=== PATIENT | female | born 1960 | race Caucasian/White ===

== ENCOUNTER 2018-11-04 10:00 | Emergency (ER) | payer BC ==
--- OUTSIDE RECORDS SUMMARY | 2018-11-04 10:02 | XMS REPORT ---
:1960 [facility] Address [address] [place] [address] [address]. Jones [address] [place] [address] Care Team Providers Name Role Phone Unavailable Unavailable Unavailable Problems This patient has no known problems. Allergies, Adverse Reactions, Alerts This patient has no known allergies or adverse reactions. Medications This patient has no known medications.
--- OUTSIDE RECORDS SUMMARY | 2018-11-04 10:02 | XMS REPORT | Continuity of Care Document ---
:1960 Author Organization Interface Problems Problem Status Onset Classification Date Comments Source Date Reported Acute urinary Diagnosis 09/03/2016 [facility] tract 7 infection Medications Medication Details Route Status Patient Ordering Order Source Instructions Provider Date NITROFURANTOIN, Macrobid Active [facility] MACROCRYSTALS 25 100 mg MG / capsule Nitrofurantoin, Take 1 Monohydrate 75 MG capsule Oral Capsule every 12 [Macrobid] hours by oral route as directed for 7 days. Phenazopyridine Pyridium Active [facility] hydrochloride 200 200 mg MG Oral Tablet tablet [Pyridium] Take 1 tablet every 8 hours by oral route as directed for 2 days. Allergies, Adverse Reactions, Alerts Substance Category Reaction Severity Reaction Status Date Comments Source type Reported Percodan Allergy to [facility] substance 7 Immunizations Immunization Date Given Site Status Last Updated Comments Source Results Order Name Results Value Reference Date Interpretation Comments Source Range Urinalysis COLOR : Yellow 09/03 [facility] macro (dipstick) panel - Urine Urinalysis CLARITY : Cloudy 09/03 [facility] macro (dipstick) panel - Urine Urinalysis LEUKOCYTES : Small 09/03 [facility] macro (dipstick) panel - Urine Urinalysis NITRITES : Negative 09/03 [facility] macro (dipstick) panel - Urine Urinalysis UROBILINOGEN : Normal 09/03 [facility] macro (dipstick) panel - Urine Urinalysis PROTEIN : Trace 09/03 [facility] macro (dipstick) panel - Urine Urinalysis pH : 5.0 09/03 [facility] macro (dipstick) panel - Urine Urinalysis BLOOD : Non-hemol 09/03 [facility] macro iz (dipstick) Trace panel - Urine Urinalysis SPECIFIC 1.030 09/03 [facility] macro GRAVITY (dipstick) panel - Urine Urinalysis KETONES : Trace 09/03 [facility] macro (dipstick) panel - Urine Urinalysis BILIRUBIN : Negative 09/03 [facility] macro (dipstick) panel - Urine Urinalysis GLUCOSE Negative 09/03 [facility] macro (dipstick) panel - Urine Vital Signs Vital Sign Value Date Comments Source Diastolic (mm Hg) 90 09/03/2016 [facility] Height 67 09/03/2016 [facility] Systolic (mm Hg) 132 09/03/2016 [facility] Weight 200 09/03/2016 [facility] Encounters Location Location Encounter Encounter Reason Attending ADM DC Status Source Details Type Number For Provider Date Date Visit [place] - [place] [id number] Ankita 09/03 [facility] Jorge [id number] Jorge /2016 - CLASSER: [id number] [facility]Sophia Tapia [id number] [place] [address] , Ph. Procedures Procedure Code Date Perfomer Comments Source Appendectomy [facility]
--- OUTSIDE RECORDS SUMMARY | 2018-11-04 10:02 | XMS REPORT | Clinical Summary ---
:1960 Author Organization [facility] Address [address] [place] [address] Care Team Providers Name Role Phone Asked, No Pcp Primary Care Provider Unavailable Allergies Active Allergy Reactions Severity Noted Date Comments Oxycodone-Acetaminophen 05/20/2016 Medications No known medications Active Problems Problem Noted Date Sprain of left rotator cuff capsule 05/20/2016 Social History Tobacco Use Types Packs/Day Years Used Date Never Assessed Sex Assigned at Date Recorded Not on file Job Start Date Occupation Industry Not on file Not on file Not on file Travel History Travel Start Travel End No recent travel history available. Last Filed Vital Signs Not on file Plan of Treatment Health Maintenance Due Date Last Done Comments BREAST CANCER SCREENING 2012 COLON CANCER SCREENING 2012 SHINGLES VACCINES (#1) 2012 INFLUENZA VACCINE 12/30/2018 Results Not on fileafter 11/03/2017 (Home) [address] [place] [id number] Advance Directives Patient has advance care planning documents on file. For more information, please contact:[address] [address]
--- NOTE | 2018-11-04 11:18 | ER ---
Nurse's Notes [facility] Name: Deanna Armendariz Age: 58 yrs Sex: Female : 1960 Arrival Date: 11/04/2018 Time: 10:02 Bed 12 Private MD: Diagnosis: Otitis media, unspecified, right ear;Otitis externa in other diseases classified elsewhere, right ear Presentation: 11/04 10:14 Presenting complaint: Patient states: Right ear pain for 2 days. Started ABX 2 days aj ago. 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 Transition of care: patient was not received from another setting of care. Onset of symptoms was November 02, 2018. Risk Assessment: Do you want to hurt yourself or someone else? Patient reports no desire to harm self or others. Initial Sepsis Screen: Does the patient meet any 2 criteria? No. Patient's initial sepsis screen is negative. Does the patient have a suspected source of infection? No. Patient's initial sepsis screen is negative. Care prior to arrival: None. 10:14 Method Of Arrival: Ambulatory aj 10:14 Acuity: SAILAJA 4 aj Triage Assessment: 10:16 General: Appears in no apparent distress. comfortable, Behavior is calm, cooperative, aj appropriate for age. Pain: Complains of pain in right ear Pain currently is 4 out of 10 on a pain scale. EENT: Reports pain in right ear. Neuro: Level of Consciousness is awake, alert, obeys commands, Oriented to person, place, time, situation, Appropriate for age. Respiratory: Airway is patent Respiratory effort is even, unlabored, Respiratory pattern is regular, symmetrical. Derm: Skin is intact, is healthy with good turgor, Skin is pink, warm \T\ dry. normal. Historical: - Allergies: 10:16 Oxycodone HCl; aj 10:16 oxycodone terephthalate; aj 10:16 ACETAMINOPHEN; aj 10:16 Aspirin; aj - PSHx: 10:16 tissue removal both breast; Appendectomy; lump removal right arm; ; Hernia aj repair; foot surgery; - Immunization history:: Adult Immunizations up to date. - Social history:: Smoking status: Patient/guardian denies using tobacco. - Ebola Screening: : Patient negative for fever greater than or equal to 101.5 degrees Fahrenheit, and additional compatible Ebola Virus Disease symptoms Patient denies exposure to infectious person Patient denies travel to an Ebola-affected area in the 21 days before illness onset No symptoms or risks identified at this time. Screenin:20 Abuse screen: Denies threats or abuse. Denies injuries from another. Nutritional hb screening: No deficits noted. Tuberculosis screening: No symptoms or risk factors identified. Fall Risk None identified. Assessment: 11:05 General: Appears in no apparent distress. Behavior is calm, cooperative. Pain: Pain hb currently is 4 out of 10 on a pain scale. Neuro: Level of Consciousness is awake, alert, obeys commands, Oriented to person, place, time, situation. Cardiovascular: Capillary refill < 3 seconds Patient's skin is warm and dry. Respiratory: Airway is patent Respiratory effort is even, unlabored, Respiratory pattern is regular, symmetrical. GI: No signs and/or symptoms were reported involving the gastrointestinal system. : No signs and/or symptoms were reported regarding the genitourinary system. EENT: Reports pain in right ear. Derm: Skin is intact, is healthy with good turgor, Skin is pink, warm \T\ dry. Musculoskeletal: No signs and/or symptoms reported regarding the musculoskeletal system. Vital Signs: 10:16 BP 165 / 87; Pulse 86; Resp 19; Temp 98.1; Pulse Ox 100% on R/A; Weight 64.41 kg; aj Height 5 ft. 8 in. (172.72 cm); 10:16 Body Mass Index 21.59 (64.41 kg, 172.72 cm) aj ED Course: 10:02 Patient arrived in ED. ds1 10:15 Triage completed. aj 10:16 Arm band placed on right wrist. Patient placed in waiting room. aj 11:03 Familia Jain PA is PHCP. cp 11:03 Familia Prieto MD is Attending Physician. cp 11:05 Patient has correct armband on for positive identification. Call light in reach. hb 11:16 Jeanette Payton MD is Referral Physician. cp 11:40 Dayan Swan, MARIANA is Primary Nurse. hb 11:41 No provider procedures requiring assistance completed. Patient did not have IV access hb during this emergency room visit. Administered Medications: No medications were administered Outcome: 11:17 Discharge ordered by . cp 11:41 Discharged to home ambulatory. hb 11:41 Condition: stable 11:41 Discharge instructions given to patient, Instructed on discharge instructions, follow up and referral plans. medication usage, Demonstrated understanding of instructions, follow-up care, medications, Prescriptions given X 2. 11:42 Patient left the ED. hb Signatures: Candelaria Pena, RN RN Aliza Farmer ds1 Familia Jain PA PA cp Baxter, Heather RN RN hb
--- NOTE | 2018-11-04 11:18 | EDPHYS ---
Physician Documentation [facility] Name: Deanna Armendariz Age: 58 yrs Sex: Female : 1960 Arrival Date: 11/04/2018 Time: 10:02 Bed 12 Private MD: ED Physician Familia Prieto HPI: 11/04 11:12 This 58 yrs old Female presents to ER via Ambulatory with complaints of Ear cp Pain. 11:12 The patient presents with pain, that is acute, swelling, tenderness. The complaints cp affect the right ear. Onset: The symptoms/episode began/occurred 2 day(s) ago. Associated signs and symptoms: Pertinent negatives: cough, fever, sinus trouble, sore throat. Severity of symptoms: in the emergency department the symptoms are worse moderately. Patient reports she is currently taking Z-christy for ear infection for past 2 days. Historical: - Allergies: 10:16 Oxycodone HCl; aj 10:16 oxycodone terephthalate; aj 10:16 ACETAMINOPHEN; aj 10:16 Aspirin; aj - PSHx: 10:16 tissue removal both breast; Appendectomy; lump removal right arm; ; Hernia aj repair; foot surgery; - Immunization history:: Adult Immunizations up to date. - Social history:: Smoking status: Patient/guardian denies using tobacco. - Ebola Screening: : Patient negative for fever greater than or equal to 101.5 degrees Fahrenheit, and additional compatible Ebola Virus Disease symptoms Patient denies exposure to infectious person Patient denies travel to an Ebola-affected area in the 21 days before illness onset No symptoms or risks identified at this time. ROS: 11:14 Constitutional: Negative for body aches, chills, fever, poor PO intake. cp 11:14 Eyes: Negative for injury, pain, redness, and discharge. cp 11:14 ENT: Positive for ear pain, Negative for drainage from ear(s), sore throat, difficulty swallowing, difficulty handling secretions. 11:14 Neck: Negative for stiffness. 11:14 Respiratory: Negative for cough, shortness of breath, wheezing. 11:14 Abdomen/GI: Negative for abdominal pain, nausea, vomiting, and diarrhea, constipation. 11:14 : Negative for urinary symptoms. 11:14 Skin: Negative for rash. 11:14 Neuro: Negative for altered mental status, headache. 11:14 All other systems are negative. Exam: 11:15 Constitutional: The patient appears in no acute distress, alert, awake, non-toxic, well cp developed, well nourished. 11:15 Head/Face: Normocephalic, atraumatic. cp 11:15 Eyes: Periorbital structures: appear normal, Conjunctiva: normal, no exudate, no injection, Lids and lashes: appear normal, bilaterally. 11:15 ENT: External ear(s): are unremarkable, pain with movement, that is moderate, of the right ear canal, swelling, of the right ear canal, mild, Ear canal(s): erythema, that is moderate, of the right canal, purulent discharge, is not appreciated, swelling, that is moderate, of the right canal, TM's: erythema, that is moderate, on the right, Examination of the other ear shows no obvious abnormality, Nose: is normal, Mouth: Lips: moist, Oral mucosa: pink and intact, moist, Posterior pharynx: Airway: no evidence of obstruction, patent. 11:15 Neck: ROM/movement: is normal, is supple, without pain, no range of motions limitations, no meningismus, no nuchal rigidity, Lymph nodes: no appreciated lymphadenopathy. 11:15 Chest/axilla: Inspection: normal. 11:15 Cardiovascular: Rate: normal. 11:15 Respiratory: the patient does not display signs of respiratory distress, Respirations: normal. 11:15 Skin: no rash present. Vital Signs: 10:16 BP 165 / 87; Pulse 86; Resp 19; Temp 98.1; Pulse Ox 100% on R/A; Weight 64.41 kg; aj Height 5 ft. 8 in. (172.72 cm); 10:16 Body Mass Index 21.59 (64.41 kg, 172.72 cm) aj MDM: 11:04 Patient medically screened. konstantin 11:10 Differential diagnosis: otitis media, otitis externa, ruptured TM, foreign body, acute cp otalgia, cerumen impaction. 11:16 Data reviewed: vital signs, nurses notes, and as a result, I will discharge patient. cp 11:16 Counseling: I had a detailed discussion with the patient and/or guardian regarding: the cp historical points, exam findings, and any diagnostic results supporting the discharge/admit diagnosis, to return to the emergency department if symptoms worsen or persist or if there are any questions or concerns that arise at home. Administered Medications: No medications were administered Disposition: 12:20 Co-signature as Attending Physician, Familia Prieto MD I agree with the assessment and [facility] plan of care. Disposition: 11/04/18 11:17 Discharged to Home. Impression: Otitis media, unspecified, right ear, Otitis externa in other diseases classified elsewhere, right ear. - Condition is Stable. - Discharge Instructions: Otitis Media, Adult, Otitis Externa. - Prescriptions for Cipro 500 mg Oral Tablet - take 1 tablet by ORAL route every 12 hours for 10 days; 20 tablet. Ciprodex 0.3- 0.1 % Otic Drops, Suspension - instill 4 drop by OTIC route every 12 hours for 7 days , for ears ONLY; 1 Container. - Medication Reconciliation Form, Thank You Letter, Antibiotic Education, Prescription Opioid Use form. - Follow up: Jeanette Payton MD; When: 2 - 3 days; Reason: Worsening of condition. - Problem is new. - Symptoms are unchanged. Signatures: Candelaria Pena, RN RN Familia Lake MD MD cha Page, Corey, PA PA cp Dayan Swan RN RN Corrections: (The following items were deleted from the chart) 11:42 11:17 11/04/2018 11:17 Discharged to Home. Impression: Otitis media, unspecified, right hb ear; Otitis externa in other diseases classified elsewhere, right ear. Condition is Stable. Forms are Medication Reconciliation Form, Thank You Letter, Antibiotic Education, Prescription Opioid Use. Follow up: Jeanette Payton; When: 2 - 3 days; Reason: Worsening of condition. Problem is new. Symptoms are unchanged. cp 11/05 07:25 07:23 Constitutional: Negative for cp cp
== END 2018-11-04 11:42 | disposition home or self-care (01) ==
LOC: ER 10:00
DX: H66.91 Otitis media, unspecified, right ear (principal); H60.91 Unspecified otitis externa, right ear; Z88.6 Allergy status to analgesic agent; Z88.5 Allergy status to narcotic agent
CPT/HCPCS: 99282

== ENCOUNTER 2018-12-06 08:28 | Emergency (ER) | payer BC ==
[2018-12-06] MEDS ORDERED: TETANUS & DIPHTHERIA TOX,ADULT 0.5 ML VIAL ONE (09:14)
--- OUTSIDE RECORDS SUMMARY | 2018-12-06 09:17 | XMS REPORT | Clinical Summary ---
:1960 Author Organization [facility] Address [address] [place] [address] Care Team Providers Name Role Phone Asked, [...] Last Done Comments BREAST CANCER SCREENING 2012 COLONOSCOPY SCREENING 2012 SHINGLES VACCINES (#1) 2012 INFLUENZA VACCINE 12/30/2018 Results Not on fileafter 12/05/2017 (Home) RO[address] [place] [phone] Advance Directives Patient has advance care planning documents on file. For more information, please contact:[address] [address]
--- OUTSIDE RECORDS SUMMARY | 2018-12-06 09:18 | XMS REPORT ---
:1960 [facility] Address [address] [place] [address] Dr. Jones [address] [place] [address] Care Team Providers Name Role Phone Unavailable Unavailable Unavailable Problems This patient has no known problems. Allergies, Adverse Reactions, Alerts This patient has no known allergies or adverse reactions. Medications This patient has no known medications.
--- OUTSIDE RECORDS SUMMARY | 2018-12-06 09:18 | XMS REPORT | Continuity of Care Document ---
:1960 Author Organization [email or web address] Care Team Providers Name Role Phone [email or web address] Unavailable Unavailable Problems Problem Status Onset Classification Date Comments [...] Percodan Allergy to [facility] substance 7 Immunizations No Data Provided for This Section Results Order Name Results Value Reference Date [...] 09/03 [facility] macro (dipstick) panel - Urine Pathology Reports No Data Provided for This Section Diagnostic Reports No Data Provided for This Section Consultation Notes No Data Provided for This Section Discharge Summaries No Data Provided for This Section History and Physicals No Data Provided for This Section Vital Signs Vital Sign Value Date Comments Source Diastolic (mm Hg) 90 09/03/2016 [facility] Height 67 09/03/2016 [facility] Systolic (mm Hg) 132 09/03/2016 [facility] Weight 200 09/03/2016 [facility] Encounters Location Location Encounter Encounter Reason Attending ADM DC Status Source Details Type Number For Provider Date Date Visit [place] - [place] [id number] Ankita 09/03 [facility] Jorge [id number] Jorge /2016 - [employer]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 Procedures Procedure Code Date Perfomer Comments Source Appendectomy [facility] Assessment and Plan No Data Provided for This Section Plan of Care No Data Provided for This Section Social History Social History Date Source Smoking Status 09/03/2016 [facility] Never Smoker Family History No Data Provided for This Section Advance Directives No Data Provided for This Section Functional Status No Data Provided for This Section
--- NOTE | 2018-12-06 09:42 | RAD REPORT ---
EXAM DESCRIPTION: RAD - Hand Left 3 View - 12/06/2018 9:06 am CLINICAL HISTORY: Left hand trauma, laceration left fifth digit region COMPARISON: None. FINDINGS: No fracture, dislocation or periosteal reaction noted. No foreign body or other soft tissu e abnormality. IMPRESSION: Negative left hand examination.
--- NOTE | 2018-12-06 10:27 | EDPHYS ---
Physician Documentation [facility] Name: Deanna Armendariz Age: 58 yrs Sex: Female : 1960 Arrival Date: 12/06/2018 Time: 08:30 Bed 19 Private MD: ED Physician Connor Carroll HPI: 12/06 08:51 This 58 yrs old Female presents to ER via Ambulatory with complaints of ps1 Finger Injury. 08:51 patient has small laceration to end of left small finger. Injured by table saw. Small ps1 superficial laceration. Does not appear to need repair. Has fake nail on finger. Does not appear to have nail bed laceration. TDAP not UTD. Pain mild. Bleeding controlled. R hand dominant.. Historical: - Allergies: 08:42 Percocet; ss 08:42 Percodan; ss - PSHx: 08:42 tissue removal both breast; Appendectomy; lump removal right arm; foot surgery; Hernia ss repair; ; - Immunization history:: Last tetanus immunization: > 10 years ago unknown. - Social history:: Smoking status: Patient/guardian denies using tobacco. - Ebola Screening: : Patient denies exposure to infectious person Patient denies travel to an Ebola-affected area in the 21 days before illness onset. ROS: 08:51 Constitutional: Negative for fever, chills, and weight loss, Eyes: Negative for injury, ps1 pain, redness, and discharge, Cardiovascular: Negative for chest pain, palpitations, and edema, Respiratory: Negative for shortness of breath, cough, wheezing, and pleuritic chest pain, Abdomen/GI: Negative for abdominal pain, nausea, vomiting, diarrhea, and constipation, Neuro: Negative for headache, weakness, numbness, tingling, and seizure. 08:51 MS/extremity: Positive for laceration, pain, Negative for deformity, paresthesias. Exam: 08:51 Constitutional: This is a well developed, well nourished patient who is awake, alert, ps1 and in no acute distress. Head/Face: Normocephalic, atraumatic. Eyes: Pupils equal round and reactive to light, extra-ocular motions intact. Lids and lashes normal. Conjunctiva and sclera are non-icteric and not injected. Cardiovascular: Regular rate and rhythm. No gallops, murmurs, or rubs. Normal PMI, no JVD. No pulse deficits. Respiratory: Lungs have equal breath sounds bilaterally, clear to auscultation and percussion. No rales, rhonchi or wheezes noted. No increased work of breathing, no retractions or nasal flaring. 08:51 Musculoskeletal/extremity: Extremities: grossly normal except: noted in the dorsal aspect of distal phalanx of left little finger: abrasion, laceration, pain. Vital Signs: 08:42 BP 131 / 79; Pulse 85; Resp 16; Temp 98.3(TE); Pulse Ox 98% on R/A; Weight 65.77 kg; ss Height 5 ft. 8 in. (172.72 cm); Pain /10; 10:16 BP 124 / 79; Pulse 71; Resp 16; Pulse Ox 100% ; bp 08:42 Body Mass Index 22.05 (65.77 kg, 172.72 cm) ss MDM: 08:37 Patient medically screened. 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 Exp: bp 08/21/2020. Lot #: [id number]. } Route: IM; Site: left deltoid; Disposition: 12/06/18 10:26 Discharged to Home. Impression: Left finger laceration. . - Condition is Stable. - Discharge Instructions: Laceration Care, Adult. - Medication Reconciliation Form, Thank You Letter, Antibiotic Education, Prescription Opioid Use form. - Follow up: Emergency Department; When: As needed; Reason: Fever > 102 F, Worsening of condition. Follow up: Private Physician; When: As needed; Reason: Recheck today's complaints, Continuance of care, Re-evaluation by your physician. - Problem is new. - Symptoms have improved. Signatures: Dispatcher [employer] EDLucila Leon RN RN ss Familia Jain PA PA cp Peltier, Brian, RN RN Connor Valdovinos MD MD ps1 Corrections: (The following items were deleted from the chart) 10:39 10:26 12/06/2018 10:26 Discharged to Home. Impression: Left finger laceration. . bp Condition is Stable. Forms are Medication Reconciliation Form, Thank You Letter, Antibiotic Education, Prescription Opioid Use. Follow up: Emergency Department; When: As needed; Reason: Fever > 102 F, Worsening of condition. Follow up: Private Physician; When: As needed; Reason: Recheck today's complaints, Continuance of care, Re-evaluation by your physician. Problem is new. Symptoms have improved. ps1
--- NOTE | 2018-12-06 10:27 | ER ---
Nurse's Notes [facility] [place] Name: Deanna Armendariz Age: 58 yrs Sex: Female : 1960 Arrival Date: 12/06/2018 Time: 08:30 Bed 19 Private MD: Diagnosis: Left finger laceration. Presentation: 12/06 08:37 Presenting complaint: Patient states: Laceration to L fifth finger sustained last night ss by accident with table saw. Pt states, "I know I need a tetanus shot, but I'm not sure if I need stitches or not.". Transition of care: patient was not received from another setting of care. Onset of symptoms was December 05, 2018. Risk Assessment: Do you want to hurt yourself or someone else? Patient reports no desire to harm self or others. Initial Sepsis Screen: Does the patient meet any 2 criteria? No. Patient's initial sepsis screen is negative. Does the patient have a suspected source of infection? No. Patient's initial sepsis screen is negative. Care prior to arrival: None. 08:37 Method Of Arrival: Ambulatory ss 08:37 Acuity: SAILAJA 4 ss Triage Assessment: 08:40 General: Appears in no apparent distress. comfortable, Behavior is calm, cooperative, bp appropriate for age. Pain: Complains of pain in dorsal aspect of distal phalanx of left little finger. EENT: No deficits noted. Neuro: No deficits noted. Cardiovascular: No deficits noted. Respiratory: Airway is patent Respiratory effort is even, unlabored, Respiratory pattern is regular, symmetrical. GI: No signs and/or symptoms were reported involving the gastrointestinal system. : No signs and/or symptoms were reported regarding the genitourinary system. Derm: No deficits noted. Musculoskeletal: No deficits noted. Injury Description: Avulsion sustained to dorsal aspect of distal phalanx of left little finger. Historical: - Allergies: 08:42 Percocet; ss 08:42 Percodan; ss - PSHx: 08:42 tissue removal both breast; Appendectomy; lump removal right arm; foot surgery; Hernia ss repair; ; - Immunization history:: Last tetanus immunization: > 10 years ago unknown. - Social history:: Smoking status: Patient/guardian denies using tobacco. - Ebola Screening: : Patient denies exposure to infectious person Patient denies travel to an Ebola-affected area in the 21 days before illness onset. Screenin:40 Abuse screen: Denies threats or abuse. Denies injuries from another. Nutritional bp screening: No deficits noted. Tuberculosis screening: No symptoms or risk factors identified. Fall Risk None identified. Assessment: 08:40 General: SEE TRIAGE NOTE. Pain: Complains of pain in left hand and dorsal aspect of bp distal phalanx of left little finger. Musculoskeletal: No signs and/or symptoms reported regarding the musculoskeletal system. 10:00 Reassessment: WOUND CLEANED, NO ACTIVE BLEEDING. AWAITING PROVIDER RE-EVAL. bp Vital Signs: 08:42 BP 131 / 79; Pulse 85; Resp 16; Temp 98.3(TE); Pulse Ox 98% on R/A; Weight 65.77 kg; ss Height 5 ft. 8 in. (172.72 cm); Pain /10; 10:16 BP 124 / 79; Pulse 71; Resp 16; Pulse Ox 100% ; bp 08:42 Body Mass Index 22.05 (65.77 kg, 172.72 cm) ED Course: 08:30 Patient arrived in ED. rg4 08:31 Blas Sharpe, MARIANA is Primary Nurse. bp 08:35 Familia Jain PA is PHCP. cp 08:35 Connor Carroll MD is Attending Physician. cp 08:40 Triage completed. ss 08:40 Patient has correct armband on for positive identification. Bed in low position. Call bp light in reach. Side rails up X2. 08:42 Arm band placed on right wrist. ss 09:00 X-ray completed. Portable x-ray completed in exam room. Patient tolerated procedure ml well. 09:07 Hand Left 3 View XRAY In Process Unspecified. EDMS 10:37 No provider procedures requiring assistance completed. Patient did not have IV access bp during this emergency room visit. Dressings: Band aid x 1 left hand. Administered Medications: 09:05 Drug: Tetanus-Diphtheria Toxoid Adult 0.5 ml {Alligator Trapper: Quixby. Exp: bp 08/21/2020. Lot #: [id number]. } Route: IM; Site: left deltoid; Outcome: 10:26 Discharge ordered by . ps1 10:37 Discharged to home ambulatory. bp 10:37 Condition: stable 10:37 Discharge instructions given to patient, Instructed on discharge instructions, follow up and referral plans. wound care, Demonstrated understanding of instructions, follow-up care, wound care. 10:39 Patient left the ED. bp Signatures: Dispatcher [employer] Phylicia Tran Shelby, RN RN ss Familia Jain PA PA cp Garcia, Rubi rg4 Blas Sharpe RN RN bp Connor Carroll MD MD ps1
== END 2018-12-06 10:39 | disposition home or self-care (01) ==
LOC: ER 08:28
DX: S61.217A Laceration without foreign body of left little finger without damage to nail, initial encounter (principal); W29.8XXA Contact with other powered hand tools and household machinery, initial encounter; Z88.5 Allergy status to narcotic agent; Z23 Encounter for immunization
CPT/HCPCS: 90471; 90714; 99283

== ENCOUNTER 2021-02-18 16:31 | Emergency (ER) | payer BC ==
[2021-02-18 17:43] LABS: Urine Blood Trace-lysed (Negative); Urine Glucose Negative (Negative); Urine Protein Negative (Negative); Urine Specific Gravity <=1.005 (1.005-1.030)
--- NOTE | 2021-02-18 18:41 | RAD REPORT ---
EXAM DESCRIPTION: CTStone Protocol - 02/18/2021 6:21 pm CLINICAL HISTORY: . FLANK PAIN COMPARISON: Abdomen Pelvis W/Wo Contrast dated 10/27/2018; Esophagram Only dated 02/18/2021 TECHNIQUE: Biphasic CT imaging of the abdomen and pelvis was performed with 100 ml non-ionic IV cont rast. All CT scans are performed using dose optimization technique as appropriate and may include automated exposure control or mA/KV adjustment according to patient size. FINDINGS: Lower chest: Circumferentially thickened distal esophagus. Liver: Several low-density liver lesions which are unchanged and likely benign. Biliary: No biliary ductal dilatation. Stomach: No significant focal abnormality. Duodenum: No significant focal abnormality. Pancreas: No significant abnormality. Spleen: No significant abnormality. Adrenal: No suspicious lesions. Kidney/ureter: Mild bilateral hydroureteronephrosis. No renal calculi. Retroperitoneum: No retroperitoneal adenopathy. Vascular: No aneurysm. Bowel: No significant focal abnormality. Barium is present within the colon. Peritoneum: No ascites or free air. Bladder: Grossly unremarkable. Reproductive: No adnexal masses. Tubal ligation clips Bones: No acute fracture. Other: n/a IMPRESSION: 1. Mild bilateral hydroureteronephrosis without obstructing stone or mass. This could be secondary to urinary retention. 2. Other incidental findings as noted above.
[2021-02-18 20:46] LABS: Urine Bacteria <20 /HPF (<20); Urine RBC NONE SEEN /HPF (NONE SEEN)
--- NOTE | 2021-02-18 20:54 | ER ---
Nurse's Notes [facility] Name: Deanna Armendariz Age: 60 yrs Sex: Female : 1960 Arrival Date: 02/18/2021 Time: 16:33 Bed 13 Private MD: Diagnosis: Low back pain;Hydroureteronephrosis Presentation: 02/18 17:16 Chief complaint: Patient states: Right flank pain x 3 days and urgent care said there's jl7 blood in urine. Coronavirus screen: Vaccine status: Patient reports receiving the 2nd dose of the covid vaccine. Date July 2020 Pfizer At this time, the client does not indicate any symptoms associated with coronavirus-19. Ebola Screen: No symptoms or risks identified at this time. Initial Sepsis Screen: Does the patient meet any 2 criteria? No. Patient's initial sepsis screen is negative. Does the patient have a suspected source of infection? No. Patient's initial sepsis screen is negative. Risk Assessment: Do you want to hurt yourself or someone else? Patient reports no desire to harm self or others. Onset of symptoms was February 16, 2021. 17:16 Method Of Arrival: Ambulatory [facility] 17:16 Acuity: SAILAJA 3 jl7 Triage Assessment: 17:19 General: Appears in no apparent distress. uncomfortable, Behavior is calm, cooperative, jl7 appropriate for age. Pain: Complains of pain in right flank Pain currently is 5 out of 10 on a pain scale. : Reports blood in urine. Historical: - Allergies: 17:19 Percocet; jl7 17:19 Percodan; jl7 - Home Meds: 17:19 None [Active]; jl7 - PMHx: 17:19 None; jl7 - PSHx: 17:19 Appendectomy; section; jl7 - Immunization history:: Adult Immunizations up to date, Client reports receiving the 2nd dose of the Covid vaccine. - Social history:: Smoking status: Patient denies any tobacco usage or history of. Screenin:11 Abuse screen: Denies threats or abuse. Nutritional screening: No deficits noted. hb Tuberculosis screening: No symptoms or risk factors identified. Fall Risk None identified. Assessment: 18:17 Reassessment: Pt gone to CT. es2 Vital Signs: 17:16 BP 158 / 94; Pulse 88; Resp 19; Temp 97.8; Pulse Ox 100% ; Weight 74.84 kg; Height 5 jl7 ft. 7 in. (170.18 cm); Pain 5/10; 17:16 Body Mass Index 25.84 (74.84 kg, 170.18 cm) jl7 ED Course: 16:33 Patient arrived in ED. rg4 17:18 Anitha Guerrero FNP-C is [facility]. kb 17:18 Luis A Stevenson MD is Attending Physician. kb 17:19 Triage completed. jl7 17:19 Arm band placed on right wrist. jl7 18:11 Bed in low position. Call light in reach. Pulse ox on. NIBP on. hb 18:16 Lynn Ham, RN is Primary Nurse. es2 18:21 CT Stone Protocol In Process Unspecified. EDMS 21:16 No provider procedures requiring assistance completed. Patient did not have IV access bs2 during this emergency room visit. Administered Medications: 21:15 Drug: Ketorolac 30 mg Route: IM; Site: right deltoid; bs2 21:16 Follow up: Response: No adverse reaction bs2 Outcome: 20:53 Discharge ordered by MD. kb 21:17 Discharged to home ambulatory. bs2 21:17 Condition: improved 21:17 Discharge instructions given to patient, Instructed on discharge instructions, follow up and referral plans. Demonstrated understanding of instructions, follow-up care, Prescriptions given X 1. 21:18 Patient left the ED. bs2 Signatures: Dispatcher [employer] EDME Anitha Guerrero FNP-C FNP-Ckb Baxter, Heather, RN RN hb Garcia, Rubi rg4 Paul Vicente RN RN jl7 Joselin Ham RN RN bs2 Lynn Ham, MARIANA RN es2 Corrections: (The following items were deleted from the chart) 17:20 17:19 PSHx: None; 7 jl
--- NOTE | 2021-02-18 20:54 | EDPHYS ---
Physician Documentation [facility] Name: Deanna Armendariz Age: 60 yrs Sex: Female : 1960 Arrival Date: 02/18/2021 Time: 16:33 Bed 13 Private MD: ED Physician Luis A Stevenson HPI: 02/19 00:31 This 60 yrs old Female presents to ER via Ambulatory with complaints of kb Urinary Problem, Low Back Pain. 00:31 The patient presents with pain that is acute, with no known mechanism of injury. The kb symptoms are located in the low back. The pain does not radiate. The problem was sustained without known cause. Onset: The symptoms/episode began/occurred 2 week(s) ago. Modifying factors: The patient symptoms are alleviated by nothing, the patient symptoms are aggravated by any movement. Associated signs and symptoms: Pertinent positives: low back pain and urgency. Severity of symptoms: At their worst the symptoms were moderate, in the emergency department the symptoms are unchanged. The patient has not experienced similar symptoms in the past. The patient has not recently seen a physician. Pt reports low back pain for 2 weeks. States the pain has moved up to flank on right side.. Historical: - Allergies: 02/18 17:19 Percocet; jl7 17:19 Percodan; jl7 - Home Meds: 17:19 None [Active]; jl7 - PMHx: 17:19 None; jl7 - PSHx: 17:19 Appendectomy; section; jl7 - Immunization history:: Adult Immunizations up to date, Client reports receiving the 2nd dose of the Covid vaccine. - Social history:: Smoking status: Patient denies any tobacco usage or history of. ROS: 02/19 00:29 Constitutional: Negative for fever, chills, and weight loss. kb : Positive for flank pain, urgency. 00:29 All other systems are negative. kb Exam: 00:30 Constitutional: This is a well developed, well nourished patient who is awake, alert, kb and in no acute distress. Head/Face: Normocephalic, atraumatic. ENT: Moist Mucous membranes Cardiovascular: Regular rate and rhythm with a normal S1 and S2. No gallops, murmurs, or rubs. No pulse deficits. Respiratory: Respirations even and unlabored. No increased work of breathing, no retractions or nasal flaring. Abdomen/GI: Soft, non-tender. No distention Back: No spinal tenderness. No costovertebral tenderness. Full range of motion. Skin: Warm, dry with normal turgor. Normal color. MS/ Extremity: Pulses equal, no cyanosis. Neurovascular intact. Full, normal range of motion. Neuro: Awake and alert, GCS 15, oriented to person, place, time, and situation. Moves all extremities. Normal gait. Psych: Awake, alert, with orientation to person, place and time. Behavior, mood, and affect are within normal limits. Vital Signs: 02/18 17:16 BP 158 / 94; Pulse 88; Resp 19; Temp 97.8; Pulse Ox 100% ; Weight 74.84 kg; Height 5 jl7 ft. 7 in. (170.18 cm); Pain 5/10; 17:16 Body Mass Index 25.84 (74.84 kg, 170.18 cm) jl7 MDM: 17:18 Patient medically screened. kb 02/19 00:28 Differential diagnosis: UTI, kidney stone. Data reviewed: vital signs, nurses notes. kb Data interpreted: Pulse oximetry: on room air is 100 %. Interpretation: normal. Counseling: I had a detailed discussion with the patient and/or guardian regarding: the historical points, exam findings, and any diagnostic results supporting the discharge/admit diagnosis, lab results, radiology results, the need for outpatient follow up, a family practitioner, to return to the emergency department if symptoms worsen or persist or if there are any questions or concerns that arise at home. 02/18 17:19 Order name: Urine Microscopic Only; Complete Time: 20:53 kb 02/18 17:43 Order name: Urine Dipstick-Ancillary; Complete Time: 17:43 EDMS 02/18 17:19 Order name: CT Stone Protocol; Complete Time: 18:42 kb 02/18 17: Order name: Urine Dipstick-Ancillary (obtain specimen); Complete Time: 18:00 kb Administered Medications: 02/18 21:15 Drug: Ketorolac 30 mg Route: IM; Site: right deltoid; bs2 21:16 Follow up: Response: No adverse reaction bs2 Disposition: 02/19 07:17 Co-signature as Attending Physician, Luis A Stevenson MD I agree with the assessment and rn plan of care. Attestation: The patient's history, exam findings, diagnostics, and a summary of any interventions or procedures was reviewed in detail with Anitha FONTENOT. Disposition Summary: 02/18/21 20:53 Discharge Ordered Location: Home kb Condition: Stable kb Diagnosis - Low back pain kb - Hydroureteronephrosis kb Followup: kb - With: Emergency Department - When: As needed - Reason: Worsening of condition Followup: kb - With: Private Physician - When: 2 - 3 days - Reason: Recheck today's complaints, Continuance of care, Re-evaluation by your physician Discharge Instructions: - Discharge Summary Sheet kb - Musculoskeletal Pain kb Forms: - Medication Reconciliation Form kb - Thank You Letter kb - Antibiotic Education kb - Prescription Opioid Use kb Prescriptions: - Cyclobenzaprine 10 mg Oral Tablet - take 1 tablet by ORAL route every 8 hours As needed; 21 tablet; Refills: 0, kb Product Selection Permitted - Diclofenac Sodium 75 mg Oral tablet,delayed release (DR/EC) - take 1 tablet by ORAL route 2 times per day As needed; 30 tablet; Refills: 0, kb Product Selection Permitted Signatures: Dispatcher [employer] EDWI Anitha Guerrero FNP-C FNP-Ckb Nieto, Roman, MD MD rn Leal, Jahala, RN RN Joselin Beltre RN RN bs2 Corrections: (The following items were deleted from the chart) 02/18 17:20 17:19 PSHx: None; jl7 jl7 02/19 00:30 00:29 : Positive for flank pain, kb kb
[2021-02-18] MEDS ORDERED: KETOROLAC 30 MG/ML INJ ONE (21:36)
[2021-02-18 22:33] VITALS: BP 158/94; TEMP 97.8; O2SAT 100
== END 2021-02-18 21:18 | disposition home or self-care (01) ==
LOC: ER 16:31
DX: N13.30 Unspecified hydronephrosis (principal); Z88.5 Allergy status to narcotic agent
CPT/HCPCS: 74176; 76377; 81003; 81015; 96372; 99284

== ENCOUNTER → 2023-06-17 | Emergency (ER) | payer BC ==
[~2023-06-17] MED LIST: FAMOTIDINE 20 MG/2 ML VIAL IV ONE; FENTANYL CITR 100 MCG/2 ML ONE; MAGNES/ALUMIN/SIMET 30ML UCUP ONE; NA CHLORIDE 0.9% 1,000 ML ONE; ONDANSETRON 4 MG/2 ML VIAL ONE
[2023-06-17 19:38] LABS: Absolute Lymphocytes (CBC) 2.4 K/uL (0.7-4.9); Hematocrit 43.4 % (36.0-45.0); Lymphocytes % 33.2 % (15.3-44.8); MCV 92.7 fL (80-100); MPV 7.2 fL (7.6-11.3); Platelets 254 thou/uL (152-406); RBC Red Blood Cell Count 4.68 M/uL (3.86-4.86)
[2023-06-17 20:03] LABS: Albumin 3.8 g/dL (3.4-5.0); Bilirubin Total 0.2 mg/dL (0.2-1.0); Potassium 4.2 mEq/L (3.5-5.1); Protein, Total 7.6 g/dL (6.4-8.2)
[2023-06-17 20:18] LABS: Specific Gravity 1.006 (1.005-1.030); Urine Bacteria <20 /HPF (<20); Urine Bilirubin NEGATIVE (Negative); Urine Blood Negative (Negative); Urine Clarity Turbid (Clear); Urine Color Colorless (Yellow); Urine Crystals Unidentified Few /HPF (None Seen); Urine Glucose NEGATIVE (Negative); Urine Protein NEGATIVE (Negative); Urine RBC <5 /HPF (None Seen); Urine Urobilinogen Normal (Normal); Urine WBC Clump Rare /HPF (None Seen)
--- NOTE | 2023-06-17 20:30 | RAD REPORT ---
EXAM DESCRIPTION: CTAbdomen Pelvis W Contrast - 06/17/2023 8:23 pm CLINICAL HISTORY: Abdominal pain. ABD PAIN COMPARISON: No comparisons TECHNIQUE: Biphasic CT imaging of the abdomen and pelvis was performed with 100 ml non-ionic IV cont rast. All CT scans are performed using dose optimization technique as appropriate and may include automated exposure control or mA/KV adjustment according to patient size. FINDINGS: The lung bases are clear. Small hiatal hernia. The liver demonstrates multiple small low-density lesions, probably cysts. The spleen, pancreas, adre nal glands and kidneys are within normal limits. No bowel obstruction, free air, free fluid or abscess. Moderate stool throughout the colon. Appendect leyt. No evidence of significant lymphadenopathy. No suspicious bony findings. IMPRESSION: No acute intra-abdominal or pelvic finding.
--- NOTE | 2023-06-17 21:14 | ER ---
Nurse's Notes [facility] Name: Deanna Armendariz Age: 63 yrs Sex: Female : 1960 Arrival Date: 06/17/2023 Time: 18:23 Bed 14 Private MD: Diagnosis: Abdominal pain, Generalized Presentation: 06/17 18:54 Chief complaint: Patient states: abd pain since yesterday, today she had diarrhea that iw was black in color. Coronavirus screen: At this time, the client does not indicate any symptoms associated with coronavirus-19. Ebola Screen: Patient negative for fever greater than or equal to 101.5 degrees Fahrenheit, and additional compatible Ebola Virus Disease symptoms Patient denies exposure to infectious person. Patient denies travel to an Ebola-affected area in the 21 days before illness onset. No symptoms or risks identified at this time. Initial Sepsis Screen: Does the patient meet any 2 criteria? No. Patient's initial sepsis screen is negative. Does the patient have a suspected source of infection? No. Patient's initial sepsis screen is negative. Risk Assessment: Do you want to hurt yourself or someone else? Patient reports no desire to harm self or others. Onset of symptoms was June 16, 2023. 18:54 Method Of Arrival: Ambulatory iw 18:54 Acuity: SAILAJA 3 iw Historical: - Allergies: 18:55 Percocet; iw 18:55 Percodan; iw - PSHx: 18:55 Appendectomy; section; iw - Immunization history:: Adult Immunizations unknown. - Family history:: not pertinent. - Social history:: Smoking status: unknown. Screenin:22 [facility] ED Fall Risk Assessment (Adult) History of falling in the last 3 months, ha1 including since admission Yes- single mechanical fall (1 pt) Confusion or Disorientation No (0 pts) Intoxicated or Sedated No (0 pts) Impaired Gait No (0 pts) Mobility Assist Device Used No (0 pt) Altered Elimination No (0 pt) Score/Fall Risk Level 0 - 2 = Low Risk Oriented to surroundings, Maintained a safe environment, Hourly rounding (assess needs \T\ fall precautionary measures) done. Abuse screen: Denies threats or abuse. Denies injuries from another. Nutritional screening: No deficits noted. Tuberculosis screening: No symptoms or risk factors identified. Assessment: 19:40 General: Appears uncomfortable, Behavior is calm, cooperative. Pain: Complains of pain ha1 in abdomen Pain does not radiate. Pain currently is 7 out of 10 on a pain scale. Quality of pain is described as crampy, throbbing. Neuro: Level of Consciousness is awake, alert, obeys commands, Oriented to person, place, time, situation. Cardiovascular: Capillary refill < 3 seconds Patient's skin is warm and dry. Respiratory: Airway is patent Respiratory effort is even, unlabored, Respiratory pattern is regular, symmetrical. GI: Abdomen is round non-distended, Bowel sounds present X 4 quads. Abd is soft and non tender Reports lower abdominal pain, upper abdominal pain, diarrhea, bloody stool, nausea. Derm: Skin is pink, warm \T\ dry. Musculoskeletal: Circulation, motion, and sensation intact. Range of motion: intact in all extremities. 20:40 Reassessment: Patient and/or family updated on plan of care and expected duration. Pain ha1 level reassessed. Patient is alert, oriented x 3, equal unlabored respirations, skin warm/dry/pink. pain 0/10 Patient states feeling better. Patient states symptoms have improved. 21:38 Reassessment: Patient and/or family updated on plan of care and expected duration. Pain ha1 level reassessed. Patient is alert, oriented x 3, equal unlabored respirations, skin warm/dry/pink. Patient denies pain at this time. Patient states feeling better. Patient states symptoms have improved. Vital Signs: 18:54 BP 155 / 99; Pulse 92; Resp 16; Temp 97.8; Pulse Ox 97% on R/A; iw 20:00 BP 134 / 85; Pulse 85; Resp 17 S; Pulse Ox 98% on R/A; ha1 20:40 BP 135 / 82; Pulse 75; Resp 17 S; Pulse Ox 98% on R/A; ha1 21:38 BP 135 / 78; Pulse 75; Resp 17 S; Pulse Ox 98% on R/A; ha1 ED Course: 18:24 Patient arrived in ED. rg4 18:26 Chaka Mcconnell MD is Attending Physician. rt 18:55 Triage completed. iw 18:55 Arm band placed on. iw 19:33 CBC with Diff Sent. bc6 19:33 CMP Sent. bc6 19:33 Lipase Sent. bc6 19:33 Inserted saline lock: 20 gauge in right wrist, using aseptic technique. Blood collected.bc6 19:35 Served as a vp patient during rectal exam. cm10 19:40 Patient has correct armband on for positive identification. Placed in gown. Bed in low ha1 position. Call light in reach. Side rails up X 1. Adult w/ patient. 19:44 Rubi Starr, MARIANA is Primary Nurse. ha1 20:05 Attending Physician role handed off by Chaka Mcconnell MD ec2 20:05 Blanco Bonilla MD is Attending Physician. ec2 20:24 CT Abd/Pelvis - IV Contrast Only In Process Unspecified. EDMS 21:12 Urine Culture Sent. ha1 21:39 Provided Education on: need to follow up with PCP. ha1 21:39 IV discontinued, intact, bleeding controlled, No redness/swelling at site. Pressure ha1 dressing applied. Administered Medications: 20:03 Drug: NS 0.9% IV 1000 ml IV at 1 bolus Per protocol; 1000 mL bolus Route: IV; Rate: 1 ha1 bolus; Site: right wrist; 21:37 Follow up: Response: No adverse reaction; IV Status: Completed infusion; IV Intake: ha1 1000ml 20:03 Drug: Ondansetron IVP 4 mg IVP once; over 2 minutes Route: IVP; Site: right wrist; ha1 20:30 Follow up: Response: No adverse reaction; Marked relief of symptoms; Nausea is decreasedha1 20:05 Drug: Famotidine IVP 20 mg IVP once; dilute with 10 mL 0.9% NaCl; give over 2 minutes ha1 Route: IVP; Site: right wrist; 20:30 Follow up: Response: No adverse reaction; Marked relief of symptoms ha1 20:07 Drug: fentaNYL (PF) IVP 50 mcg IVP once Route: IVP; Site: right wrist; ha1 20:30 Follow up: Response: No adverse reaction; Pain is decreased; RASS: Alert and Calm (0) ha1 20:18 Drug: Alum-Mag Hydroxide-Simeth PO Suspension (200 mg-200 mg-20 mg/5 mL) 30 ml PO once ha1 Route: PO; 20:30 Follow up: Response: No adverse reaction; Marked relief of symptoms ha1 Medication: 20:23 VIS not applicable for this client. ha1 Intake: 21:37 IV: 1000ml; Total: 1000ml. ha1 Outcome: 21:14 Discharge ordered by . ec2 21:39 Discharged to home ambulatory, with family, ha1 21:39 Condition: stable 21:39 Discharge instructions given to patient, family, Instructed on discharge instructions, follow up and referral plans. Demonstrated understanding of instructions, follow-up care, 21:40 Patient left the ED. ha1 Signatures: Dispatcher [employer] Angelic Peck, Annmarie Segovia RN rg4 Rubi Starr RN RN ha1 Chaka Mcconnell MD MD rt Katalina Silva bc6 Liliya Miller RN RN cm10 Blanco Bonilla MD MD ec2
--- NOTE | 2023-06-17 21:14 | EDPHYS ---
Physician Documentation [facility] Name: Deanna Armendariz Age: 63 yrs Sex: Female : 1960 Arrival Date: 06/17/2023 Time: 18:23 Bed 14 Private MD: ED Physician Blanco Bonilla HPI: 06/17 20:10 This 63 yrs old Female presents to ER via Ambulatory with complaints of Abdominal Pain, rt Black/Tarry Stools. 20:10 Patient presents to the ED with abdominal pain starting yesterday. It is in the rt epigastrium, is generalized in nature. She has no nausea or vomiting. Patient did take Pepto yesterday. She states that the day, the abdominal pain has persisted, and that she had black stools. States that it was formed, not tarry. Denies other acute complaints at this time. Symptoms are moderate in severity, no other aggravating elevating factors.. Historical: - Allergies: 18:55 Percocet; iw 18:55 Percodan; iw - PSHx: 18:55 Appendectomy; section; iw - Immunization history:: Adult Immunizations unknown. - Family history:: not pertinent. - Social history:: Smoking status: unknown. ROS: 20:10 Constitutional: Negative for fever, chills, and weight loss, Cardiovascular: Negative rt for chest pain, palpitations, and edema, Respiratory: Negative for shortness of breath, cough, wheezing, and pleuritic chest pain, MS/Extremity: Negative for injury and deformity, Skin: Negative for injury, rash, and discoloration, Neuro: Negative for headache, weakness, numbness, tingling, and seizure, Psych: Negative for depression, anxiety, suicide ideation, homicidal ideation, and hallucinations, 20:10 Abdomen/GI: Positive for abdominal pain, Negative for nausea and vomiting, Exam: 20:10 Constitutional: This is a well developed, well nourished patient who is awake, alert, rt and in no acute distress. Head/Face: Normocephalic, atraumatic. Chest/axilla: Normal chest wall appearance and motion. Nontender with no deformity. No lesions are appreciated. Cardiovascular: Regular rate and rhythm with a normal S1 and S2. No gallops, murmurs, or rubs. Normal PMI, no JVD. No pulse deficits. Respiratory: Lungs have equal breath sounds bilaterally, clear to auscultation and percussion. No rales, rhonchi or wheezes noted. No increased work of breathing, no retractions or nasal flaring. Skin: Warm, dry with normal turgor. Normal color with no rashes, no lesions, and no evidence of cellulitis. MS/ Extremity: Pulses equal, no cyanosis. Neurovascular intact. Full, normal range of motion. Neuro: Awake and alert, GCS 15, oriented to person, place, time, and situation. Cranial nerves II-XII grossly intact. Motor strength 5/5 in all extremities. Sensory grossly intact. Cerebellar exam normal. Normal gait. Psych: Awake, alert, with orientation to person, place and time. Behavior, mood, and affect are within normal limits. 20:10 Abdomen/GI: Tenderness diffusely, no rebound, guarding, distention. Rectal exam shows formed stool, dark brown. No melena noted, Vital Signs: 18:54 BP 155 / 99; Pulse 92; Resp 16; Temp 97.8; Pulse Ox 97% on R/A; iw 20:00 BP 134 / 85; Pulse 85; Resp 17 S; Pulse Ox 98% on R/A; ha1 20:40 BP 135 / 82; Pulse 75; Resp 17 S; Pulse Ox 98% on R/A; ha1 21:38 BP 135 / 78; Pulse 75; Resp 17 S; Pulse Ox 98% on R/A; ha1 MDM: 18:58 Patient medically screened. rt 20:20 Data reviewed: vital signs. ED course: Patient signed out to me and previous physician, amanda in brief patient arrives today for abdominal pain as well as dark stools. Patient recently started on Pepto-Bismol which per signout suspect is the source of the patient's tarry stools, patient is not anemic. Plan is to follow-up CT scan of the abdomen pelvis and reassess the patient.. 21:11 ED course: CT abdomen pelvis shows no acute intra-abdominal pathology. . ec2 06/17 19:00 Order name: CBC with Diff; Complete Time: 20:05 rt 06/17 19:00 Order name: CMP; Complete Time: 20:05 rt 06/17 19:00 Order name: Lipase; Complete Time: 20:05 rt 06/17 19:00 Order name: Urinalysis w/ reflexes; Complete Time: 21:10 rt 06/17 20:23 Order name: Urine Culture EDAL 06/17 19:00 Order name: CT Abd/Pelvis - IV Contrast Only; Complete Time: 21:10 rt 06/17 19:00 Order name: IV Saline Lock; Complete Time: 19:33 rt 06/17 19:00 Order name: Labs collected and sent; Complete Time: 19:33 rt Administered Medications: 20:03 Drug: NS 0.9% IV 1000 ml IV at 1 bolus Per protocol; 1000 mL bolus Route: IV; Rate: 1 ha1 bolus; Site: right wrist; 21:37 Follow up: Response: No adverse reaction; IV Status: Completed infusion; IV Intake: ha1 1000ml 20:03 Drug: Ondansetron IVP 4 mg IVP once; over 2 minutes Route: IVP; Site: right wrist; ha1 20:30 Follow up: Response: No adverse reaction; Marked relief of symptoms; Nausea is decreasedha1 20:05 Drug: Famotidine IVP 20 mg IVP once; dilute with 10 mL 0.9% NaCl; give over 2 minutes ha1 Route: IVP; Site: right wrist; 20:30 Follow up: Response: No adverse reaction; Marked relief of symptoms ha1 20:07 Drug: fentaNYL (PF) IVP 50 mcg IVP once Route: IVP; Site: right wrist; ha1 20:30 Follow up: Response: No adverse reaction; Pain is decreased; RASS: Alert and Calm (0) ha1 20:18 Drug: Alum-Mag Hydroxide-Simeth PO Suspension (200 mg-200 mg-20 mg/5 mL) 30 ml PO once ha1 Route: PO; 20:30 Follow up: Response: No adverse reaction; Marked relief of symptoms ha1 Disposition Summary: 06/17/23 21:14 Discharge Ordered Notes: Location: Home ec2 Condition: Stable ec2 Diagnosis - Abdominal pain, Generalized ec2 Followup: ec2 - With: Private Physician - When: - Reason: Recheck today's complaints Discharge Instructions: - Discharge Summary Sheet ec2 - Abdominal Pain, Adult ec2 Forms: - Medication Reconciliation Form ec2 - Thank You Letter ec2 - Antibiotic Education ec2 - Prescription Opioid Use ec2 - Patient Portal Instructions ec2 - Leadership Thank You Letter ec2 Signatures: Dispatcher [employer] Angelic Peck RN RN iw Rubi Starr RN RN ha1 Chaka Mcconnell MD MD rt Blanco Bonilla MD MD ec2
[2023-06-18 04:03] VITALS: BP 135/78; TEMP 97.8; O2SAT 98
== END ==
LOC: ER 18:23
DX: R10.84 Generalized abdominal pain (principal); Z88.5 Allergy status to narcotic agent
CPT/HCPCS: 87088; 85025; 81001; 87086; 36415; 83690; 80053; 74177; Q9967; J3010; J2405; J7030

== ENCOUNTER 2025-01-05 09:14 | Emergency (ER) | payer BC ==
[2025-01-05] MEDS ORDERED: MORPHINE 4 MG/ML SYR ONE (09:44)
[2025-01-05] MEDS ORDERED: NA CHLORIDE 0.9% 1,000 ML ONE ×2 (09:44→11:34)
[2025-01-05] MEDS ORDERED: ONDANSETRON 4 MG/2 ML VIAL ONE (09:44)
[2025-01-05 10:03] LABS: Absolute Lymphocytes (CBC) 1.4 K/uL (0.7-4.9); Hematocrit 49.3 % (36.0-45.0); Hemoglobin 16.8 g/dL (12.0-15.0); MCH 31.1 pg (27.0-35.0); MCHC 34.0 g/dL (32.0-36.0); MCV 91.5 fL (80-100); MPV 7.6 fL (7.6-11.3); Nucleated RBC Absolute Count 0.0 (0-0); Nucleated Red Blood Cells % 0.0 % (0-0); RBC Red Blood Cell Count 5.39 M/uL (3.86-4.86); White Blood Count 9.70 thou/uL (4.3-10.9)
[2025-01-05 10:19] LABS: ALT/SGPT 17 U/L (13-56); Albumin 4.1 g/dL (3.4-5.0); Albumin/Globulin Ratio 1.1 (1.1-1.8); Alkaline Phosphatase 90 U/L (45-117); Anion Gap 9.8 mEq/L (5.0-15.0); BUN Blood Urea Nitrogen 24 mg/dL (7-18); Globulin 3.9 g/dL (2.3-3.5); Glucose Level 110 mg/dL (74-106); Lipase 19 U/L (13-75); Potassium 3.8 mEq/L (3.5-5.1)
[2025-01-05 10:26] LABS: AST/SGOT < 10 U/L (15-37)
--- NOTE | 2025-01-05 11:11 | RAD REPORT ---
EXAMINATION: CT ABDOMEN AND PELVIS WITH CONTRAST CLINICAL INDICATION: ABD PAIN TECHNIQUE: CT abdomen and pelvis was performed, after the administration of IV contrast, as per [facility] protocol. Axial, sagittal and coronal reconstructions were obtained. One or more of the following dose reduction techniques were used: Automated exposure control, adjustment of the mA and k V according to patient size, and iterative reconstruction. Unless otherwise specified, incidental findings do not require dedicated imaging follow-up. COMPARISON: No prior exam. FINDINGS: LOWER CHEST: The visualized lung bases are clear. LIVER: Several low-density liver lesions likely benign cyst. Largest measuring 2 cm. No aggressive li nikky lesion. Grossly unremarkable gallbladder. SPLEEN: Normal size. No focal lesion. PANCREAS: No mass, ductal dilation, or zuly-pancreatic fluid. ADRENALS: Normal; no mass. KIDNEYS: Normal size and contour. No hydronephrosis. GASTROINTESTINAL TRACT: No evidence of free air, significant intra-abdominal free fluid, bowel obstru ction or abscess. Mildly thickened appearance to the stomach mucosa seen. APPENDIX: Appendix surgically absent. LYMPH NODES: No lymphadenopathy. MUSCULOSKELETAL: Mild/moderate lower lumbar spondylosis. ADDITIONAL FINDINGS: None. IMPRESSION: Question mild gastritis. Otherwise, no acute process visualized.
--- NOTE | 2025-01-05 12:49 | ER ---
Nurse's Notes [facility] Name: Deanna Armendariz Age: 64 yrs Sex: Female : 1960 Arrival Date: 01/05/2025 Time: 09:14 Bed 6 Private MD: Diagnosis: Diarrhea, unspecified;Vomiting;Dehydration Presentation: 01/05 09:19 Chief complaint: Patient states: "I started with diarrhea on Thursday and it was better aa5 by Thursday but last night I started with vomiting and diarrhea again". Pt also c/o abd pain. 09:19 Coronavirus screen: diarrhea, nausea, vomiting. Ebola Screen: Patient denies travel to [facility] an Ebola-affected area in the 21 days before illness onset. Initial Sepsis Screen: Does the patient meet any 2 criteria? No. Patient's initial sepsis screen is negative. Does the patient have a suspected source of infection? No. Patient's initial sepsis screen is negative. Risk Assessment: Do you want to hurt yourself or someone else? Patient reports no desire to harm self or others. Onset of symptoms was December 2024. 09:19 Acuity: SAILAJA 3 aa5 09:19 Method Of Arrival: Ambulatory aa5 Historical: - Allergies: 09:28 Percocet; aa5 09:28 Percodan; aa5 - Home Meds: 10:03 escitalopram oxalate 20 mg oral tablet 1 tab daily [Active]; ar8 - PMHx: 10:03 Anxiety; ar8 - PSHx: 09:28 Appendectomy; section; aa5 - Immunization history:: Adult Immunizations unknown. - Infectious Disease History:: Denies. - Social history:: Smoking status: Patient denies any tobacco usage or history of. Screenin:03 [facility] ED Fall Risk Assessment (Adult) History of falling in the last 3 months, ar8 including since admission No falls in past 3 months (0 pts) Confusion or Disorientation No (0 pts) Intoxicated or Sedated No (0 pts) Impaired Gait No (0 pts) Mobility Assist Device Used No (0 pt) Altered Elimination No (0 pt) Score/Fall Risk Level 0 - 2 = Low Risk. [facility] ED Fall Risk Assessment (Adult) Score/Fall Risk Level 0 - 2 = Low Risk Oriented to surroundings, Maintained a safe environment. Abuse screen: Denies threats or abuse. Nutritional screening: No deficits noted. Tuberculosis screening: No symptoms or risk factors identified. Assessment: 09:41 General: Appears uncomfortable, Behavior is calm, cooperative. ar8 09:41 Pain: Complains of pain in umbilical area Pain currently is 6 out of 10 on a pain ar8 scale. Neuro: No deficits noted. Level of Consciousness is awake, alert, obeys commands, Oriented to person, place, time, situation. Cardiovascular: No deficits noted. Respiratory: No deficits noted. Airway is patent Respiratory effort is even, unlabored, Respiratory pattern is regular, symmetrical. GI: Abdomen is flat, Last BM was January 05, 2025. at 04:00. Abd is soft X 4 quads Abdomen is tender to palpation diffuse tenderness Reports upper abdominal pain, diarrhea, nausea. 11:38 Reassessment: Patient appears in no apparent distress at this time. Patient and/or ph family updated on plan of care and expected duration. Pain level reassessed. Patient is alert, oriented x 3, equal unlabored respirations, skin warm/dry/pink. 13:21 Reassessment: Patient appears in no apparent distress at this time. Patient and/or db family updated on plan of care and expected duration. Pain level reassessed. Patient is alert, oriented x 3, equal unlabored respirations, skin warm/dry/pink. Patient states symptoms have improved. Vital Signs: 09:19 BP 108 / 87; Pulse 104; Resp 18 S; Temp 97.7(O); Pulse Ox 96% on R/A; aa5 10:29 Pain 4/10; ar8 11:38 BP 115 / 68; Pulse 79; Resp 18; Pulse Ox 96% on R/A; ph 12:00 BP 106 / 58; Pulse 79; Resp 16; Pulse Ox 95% ; db 13:00 BP 109 / 72; Pulse 80; Resp 16; Pulse Ox 99% ; db 10:29 Pain Scale: Adult ar8 ED Course: 09:17 Patient arrived in ED. im 09:19 Arm band placed on. aa5 09:20 Nakul Jones NP is PHCP. pm1 09:20 Shefali Esqueda MD is Attending Physician. pm1 09:29 Triage completed. aa5 09:31 Jonn Mojica, MARIANA is Primary Nurse. ar8 09:41 Bed in low position. Call light in reach. Side rails up X2. at bedside. ar8 09:41 Provided Education on: plan of care. ar8 09:42 No provider procedures requiring assistance completed. Inserted saline lock: 22 gauge ar8 in left antecubital area, using aseptic technique. Blood collected. Flushed with 10 mL NS. 10:53 CT Abd/Pelvis - IV Contrast Only In Process Unspecified. EDMS 13:21 Pulse ox on. NIBP on. db 13:21 Warm blanket given. Pillow given. db 13:21 IV discontinued, intact, bleeding controlled, No redness/swelling at site. db Administered Medications: 09:50 Drug: Ondansetron IVP 4 mg IVP once; over 2 minutes Route: IVP; Infused Over: 2 mins; ar8 Site: left antecubital; 10:29 Follow up: Response: No adverse reaction ar8 10:29 Follow up: Response: Nausea is decreased ar8 09:50 Drug: NS 0.9% IV 1000 ml IV at 1 bolus Per protocol; to be given as a bolus over 60 ar8 minutes Route: IV; Rate: 1 bolus; Site: left antecubital; 11:30 Follow up: Response: No adverse reaction; IV Status: Completed infusion; IV Intake: ar8 1000ml 09:52 Drug: morphine IVP or IV 4 mg IVP once over 4 mins Route: IVP; Infused Over: 4 mins; ar8 Site: left antecubital; 10:29 Follow up: Pain 4/10 Adult; Response: No adverse reaction; Pain is decreased ar8 11:40 Drug: NS 0.9% IV 1000 ml IV at 1000 ml once; to be given as a bolus over 60 minutes ar8 Route: IV; Rate: 1000 ml; Site: left antecubital; 13:22 Follow up: Response: No adverse reaction; IV Status: Completed infusion; IV Intake: db 1000ml 13:10 Drug: Dicyclomine PO 20 mg PO once Route: PO; db 13:19 Follow up: Response: No adverse reaction db Medication: 10:03 VIS not applicable for this client. ar8 Intake: 11:30 IV: 1000ml; Total: 1000ml. ar8 13:22 IV: 1000ml; Total: 2000ml. db Outcome: 12:49 Discharge ordered by . pm1 13:21 Discharged to home ambulatory, with family, db 13:21 Condition: stable 13:21 Discharge instructions given to patient, Instructed on discharge instructions, follow up and referral plans. Prescriptions given X 2, 13:23 Patient left the ED. db Signatures: Dispatcher [employer] EDMS Gloria Eckert, RN RN aa5 Katelynn Espinoza RN RN Nakul Benson, REGULATOR ASSEMBLER REGULATOR ASSEMBLER pm1 Radha Peng RN RN db Olga Armenta Andrea RN RN ar8
--- NOTE | 2025-01-05 12:49 | EDPHYS ---
Physician Documentation [facility] Name: Deanna Armendariz Age: 64 yrs Sex: Female : 1960 Arrival Date: 01/05/2025 Time: 09:14 Bed 6 Private MD: ED Physician Shefali Esqueda HPI: 01/05 10:07 This 64 yrs old Female presents to ER via Ambulatory with complaints of General pm1 Weakness, Diarrhea. 10:07 The patient presents to the emergency department with vomiting, 1 times since the onset pm1 of symptoms, described as clear fluid, diarrhea, multiple episodes of watery diarrhea for the past 3 days, abdominal pain, of the diffuse, described as crampy, and does not radiate. Onset: The symptoms/episode began/occurred 3 day(s) ago. Possible causes: bad food exposure, initial impression. The symptoms are aggravated by food , The symptoms are alleviated by nothing. Has not tried any over the counter medications or remedies. Associated signs and symptoms: Pertinent negatives: dysuria, fever, GI bleeding, blood in diarrhea. Severity of symptoms: in the emergency department the symptoms are unchanged. The patient has not recently seen a physician. The patient and were concerned over dehydration with 3 days of watery diarrhea. 1 episode of vomiting this morning.. Historical: - Allergies: 09:28 Percocet; aa5 09:28 Percodan; aa5 - Home Meds: 10:03 escitalopram oxalate 20 mg oral tablet 1 tab daily [Active]; ar8 - PMHx: 10:03 Anxiety; ar8 - PSHx: 09:28 Appendectomy; section; aa5 - Immunization history:: Adult Immunizations unknown. - Infectious Disease History:: Denies. - Social history:: Smoking status: Patient denies any tobacco usage or history of. ROS: 10:07 Cardiovascular: Negative for chest pain, palpitations, and edema, Respiratory: Negative pm1 for shortness of breath, cough, wheezing, and pleuritic chest pain, 10:07 Back: Negative for injury and pain, : Negative for injury, bleeding, discharge, and swelling, MS/Extremity: Negative for injury and deformity, Skin: Negative for injury, rash, and discoloration, 10:07 Constitutional: Positive for generalized weakness, Negative for body aches, fever, 10:07 Abdomen/GI: Positive for abdominal pain, nausea, vomiting, and diarrhea, Negative for hematemesis, black/tarry stool, rectal bleeding, 10:07 Neuro: Negative for headache, numbness, tingling, Focal weakness, 10:07 All other systems are negative, Exam: 10:07 Constitutional: This is a well developed, well nourished patient who is awake, alert, pm1 and in no acute distress. Head/Face: Normocephalic, atraumatic. 10:07 Back: No spinal tenderness. No costovertebral tenderness. Full range of motion. Skin: Warm, dry with normal turgor. Normal color with no rashes, no lesions, and no evidence of cellulitis. MS/ Extremity: Pulses equal, no cyanosis. Neurovascular intact. Full, normal range of motion. 10:07 Cardiovascular: Exam negative for acute changes, 10:07 Respiratory: Exam negative for acute changes, respiratory distress, shortness of breath, tachypnea, 10:07 Abdomen/GI: Inspection: abdomen appears normal, Bowel sounds: normal, Palpation: soft, in all quadrants, mild abdominal tenderness, in the left lower quadrant, mass, is not appreciated, rebound tenderness, is not appreciated, 10:07 Neuro: Exam negative for acute changes, Vital Signs: 09:19 BP 108 / 87; Pulse 104; Resp 18 S; Temp 97.7(O); Pulse Ox 96% on R/A; aa5 10:29 Pain 4/10; ar8 11:38 BP 115 / 68; Pulse 79; Resp 18; Pulse Ox 96% on R/A; ph 12:00 BP 106 / 58; Pulse 79; Resp 16; Pulse Ox 95% ; db 13:00 BP 109 / 72; Pulse 80; Resp 16; Pulse Ox 99% ; db 10:29 Pain Scale: Adult ar8 MDM: 09:31 Medical Screening Exam initiated pm1 10:17 Data reviewed: vital signs. pm1 10:17 Differential diagnosis: Nonspecific abd pain, cholecystitis, appendicitis, viral pm1 gastroenteritis, gastroenteritis. 11:58 Counseling: I had a detailed discussion with the patient and/or guardian regarding lab pm1 results, radiology results, Discussed with patient prior Cr 1.3 from prior ER visit in June. Cr 1.5 today that is likely from mild dehydration. 0.2 increase from baseline in June will address with IV fluids in the ER.. 12:48 Counseling: I had a detailed discussion with the patient and/or guardian regarding the pm1 historical points, exam findings, and any diagnostic results supporting the discharge/admit diagnosis, the need for outpatient follow up, to return to the emergency department if symptoms worsen or persist or if there are any questions or concerns that arise at home, . 01/05 09:31 Order name: CBC with Diff; Complete Time: 10:18 pm1 01/05 09:31 Order name: CMP; Complete Time: 10:27 pm1 01/05 09:31 Order name: Lipase; Complete Time: 10:27 pm1 01/05 09:31 Order name: CT Abd/Pelvis - IV Contrast Only; Complete Time: 11:18 pm1 01/05 09:31 Order name: IV Saline Lock; Complete Time: 09:42 pm1 01/05 09:31 Order name: Labs collected and sent; Complete Time: 09:42 pm1 Administered Medications: 09:50 Drug: Ondansetron IVP 4 mg IVP once; over 2 minutes Route: IVP; Infused Over: 2 mins; ar8 Site: left antecubital; 10:29 Follow up: Response: No adverse reaction ar8 10:29 Follow up: Response: Nausea is decreased ar8 09:50 Drug: NS 0.9% IV 1000 ml IV at 1 bolus Per protocol; to be given as a bolus over 60 ar8 minutes Route: IV; Rate: 1 bolus; Site: left antecubital; 11:30 Follow up: Response: No adverse reaction; IV Status: Completed infusion; IV Intake: ar8 1000ml 09:52 Drug: morphine IVP or IV 4 mg IVP once over 4 mins Route: IVP; Infused Over: 4 mins; ar8 Site: left antecubital; 10:29 Follow up: Pain 4/10 Adult; Response: No adverse reaction; Pain is decreased ar8 11:40 Drug: NS 0.9% IV 1000 ml IV at 1000 ml once; to be given as a bolus over 60 minutes ar8 Route: IV; Rate: 1000 ml; Site: left antecubital; 13:22 Follow up: Response: No adverse reaction; IV Status: Completed infusion; IV Intake: db 1000ml 13:10 Drug: Dicyclomine PO 20 mg PO once Route: PO; db 13:19 Follow up: Response: No adverse reaction db Disposition Summary: 01/05/25 12:49 Discharge Ordered Notes: Location: Home pm1 Problem: new pm1 Symptoms: have improved pm1 Condition: Stable pm1 Diagnosis - Diarrhea, unspecified pm1 - Vomiting pm1 - Dehydration pm1 Followup: pm1 - With: Emergency Department - When: As needed - Reason: Worsening of condition Followup: pm1 - With: Private Physician - When: 2 - 3 days - Reason: Recheck today's complaints, Continuance of care, Re-evaluation by your physician Discharge Instructions: - Discharge Summary Sheet pm1 - Food Choices to Help Relieve Diarrhea, Adult pm1 - Dehydration, Adult pm1 - Nausea and Vomiting, Adult pm1 - Rehydration, Adult pm1 Forms: - Medication Reconciliation Form pm1 - Antibiotic Education pm1 - Prescription Opioid Use pm1 - Patient Portal Instructions pm1 - Leadership Thank You Letter pm1 Prescriptions: - ondansetron 4 mg Oral Tablet,disintegrating - take 1 tablet ORAL route every 8 hours As needed as needed for nausea and pm1 vomiting; 12 tablet; Refills: 0, Product Selection Permitted - dicyclomine 20 mg Oral tablet - take 1 tablet ORAL route every 6 hours As needed; 20 tablet; Refills: 0, pm1 Product Selection Permitted Signatures: Dispatcher [employer] Gloria Plascencia, RN RN aa5 Nakul Jones, COMPA DOCUMENTATION IMPROVEMENT SPECIALIST pm1 Radha Peng RN RN db Jonn Mojica, RN RN ar8 Corrections: (The following items were deleted from the chart) 09:32 09:32 Abdomen Pelvis W [id number] ordered. EDMS EDMS
[2025-01-05] MEDS ORDERED: DICYCLOMINE HCL 10 MG CAP ONE (13:12)
[2025-01-05 13:44] VITALS: TEMP 97.7
[2025-01-05 13:58] VITALS: BP 109/72; O2SAT 99
== END 2025-01-05 13:23 | disposition home or self-care (01) ==
LOC: ER 09:14
DX: E86.0 Dehydration (principal); R11.10 Vomiting, unspecified
CPT/HCPCS: 96361; 85025; 36415; 83690; 80053; 74177; 96375; 96374; 99284; Q9967; J2405; J7030 ×2